=== PATIENT | male | born 1960 | race Caucasian/White ===

== ENCOUNTER → 2018-02-02 | Outpatient (CLI) | payer MEDICARE, OTHER ==
[~2018-02-02] MED LIST: ALBU90OI6 INH; ASPI81EC PO; Amiodarone HCl200 MG PO; DICL75ER PO; DILT120 PO; DOXY100 PO; FISH1000 PO; FURO40 PO; Flovent Disku250 MCG IH; Flovent Disku250 MCG INH; GUAI600T33 PO; HYDACE5325 PO; Ipratr-Albuterol3 ML IH; LISHYD1012 PO; LOVA40 PO; METF500 PO; METO25ER PO; METO50ER PO; MORP30 PO; OXYACE5T PO; OXYC10TA19 PO; PRED10 PO; PREG75 PO; PRENZ PO; Prednisone20 MG PO; Prozac20 MG PO; RANI150 PO; ROSU10TA PO; RXHYD5325 PO; Ventolin/Prove6.7 GM INH; XARELTO20 MG PO
[2018-02-02 14:38] LABS: BASOPHILS ABSOLUTE AUTO 0.04 K/mm3 (0.00-0.23); BASOPHILS PERCENT AUTO 0 % (0-2); EOSINOPHILS ABSOLUTE AUTO 0.16 K/mm3 (0.00-0.68); EOSINOPHILS PERCENT AUTO 2 % (0-6); Hematocrit 46.8 % (37.0-53.0); Hemoglobin 15.1 g/dL (13.5-17.5); IMMATURE GRAN ABSOLUTE AUTO 0.03 K/mm3 (0.00-0.10); IMMATURE GRAN PERCENT AUTO 0 % (0-1); LYMPHOCYTES ABSOLUTE AUTO 2.52 K/mm3 (0.84-5.20); LYMPHOCYTES PERCENT AUTO 23 % (21-46); MONOCYTES ABSOLUTE AUTO 0.72 K/mm3 (0.16-1.47); MONOCYTES PERCENT AUTO 7 % (4-13); Mean Corpuscular HGB Conc 32.3 g/dL (31.5-36.5); Mean Corpuscular Volume 90 fL (80-100); Mean Platelet Volume 11.4 fL (9.1-12.4); NEUTROPHILS ABSOLUTE AUTO 7.51 K/mm3 (1.96-9.15); NEUTROPHILS PERCENT AUTO 68 % (41-73); Platelet Count 284 K/mm3 (150-400); RDW Coefficient Variation 15.1 % (11.7-14.2); Red Blood Cell Count 5.21 M/mm3 (4.30-5.90); White Blood Cell Count 10.98 K/mm3 (4.00-11.30)
[2018-02-02 15:08] LABS: Magnesium, Blood 2.2 mg/dL (1.6-2.4)
[2018-02-02 15:10] LABS: Thyroid Stimulating Hormone 0.697 uIU/mL (0.360-4.800)
== END ==
LOC: LAB SHORT 11:15 → LAB 11:15
PROVIDERS: Nurse Practitioner Adult Health
DX: I48.0 Paroxysmal atrial fibrillation (principal)
CPT/HCPCS: 83735; 84443; 85025

== ENCOUNTER 2019-04-01 12:52 | Emergency (ER) | payer OTHER ==
[~2019-04-01] VITALS: Ht 190.5 cm; Wt 149.7 kg
[~2019-04-01 12:52] MED LIST changes: -FURO40 PO; -Ipratr-Albuterol3 ML IH; -MORP30 PO; -Prozac20 MG PO; -Ventolin/Prove6.7 GM INH; -XARELTO20 MG PO
[2019-04-01 13:45] LABS: BASOPHILS ABSOLUTE AUTO 0.03 K/mm3 (0.00-0.23); BASOPHILS PERCENT AUTO 0 % (0-2); EOSINOPHILS PERCENT AUTO 0 % (0-6); Hematocrit 44.8 % (37.0-53.0); Hemoglobin 14.3 g/dL (13.5-17.5); IMMATURE GRAN ABSOLUTE AUTO 0.06 K/mm3 (0.00-0.10); IMMATURE GRAN PERCENT AUTO 0 % (0-1); LYMPHOCYTES ABSOLUTE AUTO 2.08 K/mm3 (0.84-5.20); LYMPHOCYTES PERCENT AUTO 12 % (21-46); MONOCYTES ABSOLUTE AUTO 1.22 K/mm3 (0.16-1.47); MONOCYTES PERCENT AUTO 7 % (4-13); Mean Corpuscular HGB 27.8 pg (26.0-34.0); Mean Corpuscular HGB Conc 31.9 g/dL (31.5-36.5); Mean Corpuscular Volume 87 fL (80-100); Mean Platelet Volume 11.3 fL (9.1-12.4); NEUTROPHILS ABSOLUTE AUTO 13.85 K/mm3 (1.96-9.15); NEUTROPHILS PERCENT AUTO 80 % (41-73); Platelet Count 317 K/mm3 (150-400); RDW Coefficient Variation 14.6 % (11.7-14.2); RDW Standard Deviation 47.5 fL (35.1-46.3); Red Blood Cell Count 5.14 M/mm3 (4.30-5.90); White Blood Cell Count 17.24 K/mm3 (4.00-11.30)
[2019-04-01 14:07] LABS: Alanine Aminotransfer (ALT/SGP 20 U/L (12-78); Albumin, Blood 3.5 g/dL (3.4-5.0); Albumin/Globulin Ratio 0.8 (0.8-1.8); Alk Phos 134 U/L (50-136); Anion Gap 7 mmol/L (6-16); Aspartate Aminotrans (AST/SGOT 8 U/L (12-37); Bilirubin, Total 0.7 mg/dL (0.1-1.0); Blood Urea Nitrogen 16 mg/dL (8-24); Bun/Creatinine Ratio 16.2 (12.0-20.0); CO2, Blood 25 mmol/L (21-32); Calcium, Blood 9.2 mg/dL (8.5-10.1); Chloride, Blood 107 mmol/L (98-108); Creatinine, Blood 0.99 mg/dL (0.60-1.20); Globulin, Blood 4.5 g/dL (2.2-4.0); Glomerular Filtration Rate >60 (60-); Glucose, Blood 123 mg/dL (70-99); Potassium, Blood 4.1 mmol/L (3.5-5.5); Sodium, Blood 139 mmol/L (136-145); Troponin I <0.015 ng/mL (0.000-0.040)
[2019-04-01] MEDS ORDERED: Prozac20 MG PO (14:15)
[2019-04-01] MEDS ORDERED: Ventolin/Prove6.7 GM INH (14:16)
[2019-04-01] MEDS ORDERED: XARELTO20 MG PO (14:16)
[2019-04-01] MEDS ORDERED: ZESTRIL40 M1 PO (14:17)
[2019-04-01] MEDS ORDERED: Cartia Xt240 MG PO (14:17)
[2019-04-01] MEDS ORDERED: TRELEGY ELLIPT1 EACH INH (14:18)
[2019-04-01] MEDS ORDERED: ATORVASTATIN CA40 MG PO (14:18)
[2019-04-01] MEDS ORDERED: ALBU2.5V5 NEB (14:34)
[2019-04-01] MEDS ORDERED: MORP30 PO (14:34)
[2019-04-01] MEDS ORDERED: Amiodarone HCl200 MG PO (14:35)
[2019-04-01] MEDS ORDERED: FURO20 PO (14:35)
[2019-04-01] MEDS ORDERED: WAL-ZAN 150150 MG PO (14:36)
[2019-04-01] MEDS ORDERED: Zithromax250 MG PO (15:18)
[2019-04-01] MEDS ORDERED: Prednisone20 MG PO (15:18)
== END 2019-04-01 15:39 | disposition home or self-care (01) ==
LOC: ER 12:52
PROVIDERS: Physician Assistant
DX: J44.1 Chronic obstructive pulmonary disease with (acute) exacerbation (principal); I48.91 Unspecified atrial fibrillation; E11.9 Type 2 diabetes mellitus without complications; F17.200 Nicotine dependence, unspecified, uncomplicated; Z88.5 Allergy status to narcotic agent; Z91.041 Radiographic dye allergy status; Z79.899 Other long term (current) drug therapy; Z79.51 Long term (current) use of inhaled steroids
CPT/HCPCS: 71046; 80053; 83690; 84484; 85025; 93005; 93010; 94640; 96374; 96375; 99285-25; J1170; J2405; J2930

== ENCOUNTER → 2020-02-05 | Outpatient (CLI) | payer OTHER ==
[~2020-02-05] MED LIST changes: +ALBU2.5V5 NEB; +ALBU90OI INH; +ATORVASTATIN CA40 MG PO; +Cartia Xt240 MG PO; +FURO20 PO; +MORP30 PO; +PRED20 PO; +Prozac20 MG PO; +TRELEGY ELLIPT1 EACH INH; +Ventolin/Prove6.7 GM INH; +WAL-ZAN 150150 MG PO; +XARELTO20 MG PO; +ZESTRIL40 M1 PO; +Zithromax250 MG PO
[2020-02-05 15:34] LABS: Microalb/Creat Ratio UR, Rand 6.77 mg/g (0.000-30.000); Microalbumin, Random Urine 21.8 mg/L (0.000-20.000)
== END | disposition home or self-care (01) ==
LOC: LAB SHORT 13:56 → LAB 13:56 → LAB FUT 01-30 13:25
PROVIDERS: Family Medicine
DX: E11.9 Type 2 diabetes mellitus without complications (principal)
CPT/HCPCS: 82043; 82570

== ENCOUNTER 2020-05-23 05:31 | Emergency (ER) | payer OTHER ==
[~2020-05-23] VITALS: Ht 188 cm; Wt 158.8 kg
[~2020-05-23 05:31] MED LIST changes: -ALBU2.5V5 NEB; -ATORVASTATIN CA40 MG PO; -Cartia Xt240 MG PO; -MORP30 PO; -TRELEGY ELLIPT1 EACH INH; -Ventolin/Prove6.7 GM INH; -XARELTO20 MG PO; -ZESTRIL40 M1 PO
[2020-05-24] MEDS ORDERED: Norco 5-325 Ta1 EACH PO (13:12)
[2020-05-24] MEDS ORDERED: MORP30 PO (13:12)
[2020-05-24] MEDS ORDERED: XARELTO20 MG PO (13:13)
[2020-05-24] MEDS ORDERED: NEURONTIN300 MG PO (13:14)
[2020-05-24] MEDS ORDERED: ATORVASTATIN CA40 MG PO (13:15)
[2020-05-24] MEDS ORDERED: Amiodarone HCl200 MG PO (13:15)
[2020-05-24] MEDS ORDERED: Ventolin/Prove6.7 GM INH (13:15)
[2020-05-24] MEDS ORDERED: DILTIAZEM 24HR120 M4 PO (13:16)
[2020-05-24] MEDS ORDERED: Prinivil10 MG PO (13:17)
[2020-05-24] MEDS ORDERED: OMEP20ER PO (13:18)
[2020-05-24] MEDS ORDERED: TRELEGY ELLIPT1 EACH INH (13:19)
[2020-05-24] MEDS ORDERED: NITROGLYCERIN0.4 M3 SL (13:20)
[2020-05-24] MEDS ORDERED: ALBU2.5V5 NEB (16:09)
== END 2020-05-23 07:23 | disposition home or self-care (01) ==
LOC: ER 05:31
DX: S76.101A Unspecified injury of right quadriceps muscle, fascia and tendon, initial encounter (principal); I48.91 Unspecified atrial fibrillation; F17.210 Nicotine dependence, cigarettes, uncomplicated; Z91.041 Radiographic dye allergy status; Z88.5 Allergy status to narcotic agent; Z79.52 Long term (current) use of systemic steroids; Y04.0XXA Assault by unarmed brawl or fight, initial encounter
CPT/HCPCS: 29505; 73562-RT; 96372-59; 99283-25; J2270

== ENCOUNTER 2020-05-24 12:50 | Observation (INO) | payer OTHER ==
[~2020-05-24] VITALS: Ht 190.5 cm; Wt 159.0 kg
[2020-05-24] MEDS ORDERED: MORP30 PO (13:12)
[2020-05-24] MEDS ORDERED: Norco 5-325 Ta1 EACH PO (13:12)
[2020-05-24] MEDS ORDERED: XARELTO20 MG PO (13:13)
[2020-05-24] MEDS ORDERED: NEURONTIN300 MG PO (13:14)
[2020-05-24] MEDS ORDERED: Ventolin/Prove6.7 GM INH (13:15)
[2020-05-24] MEDS ORDERED: Amiodarone HCl200 MG PO (13:15)
[2020-05-24] MEDS ORDERED: ATORVASTATIN CA40 MG PO (13:15)
[2020-05-24] MEDS ORDERED: DILTIAZEM 24HR120 M4 PO (13:16)
[2020-05-24] MEDS ORDERED: Prinivil10 MG PO (13:17)
[2020-05-24] MEDS ORDERED: OMEP20ER PO (13:18)
[2020-05-24] MEDS ORDERED: TRELEGY ELLIPT1 EACH INH (13:19)
[2020-05-24] MEDS ORDERED: NITROGLYCERIN0.4 M3 SL (13:20)
[2020-05-24 13:23] LABS: BASOPHILS ABSOLUTE AUTO 0.04 K/mm3 (0.00-0.23); BASOPHILS PERCENT AUTO 1 % (0-2); EOSINOPHILS ABSOLUTE AUTO 0.06 K/mm3 (0.00-0.68); EOSINOPHILS PERCENT AUTO 1 % (0-6); Hematocrit 43.8 % (37.0-53.0); Hemoglobin 13.7 g/dL (13.5-17.5); IMMATURE GRAN ABSOLUTE AUTO 0.02 K/mm3 (0.00-0.10); IMMATURE GRAN PERCENT AUTO 0 % (0-1); LYMPHOCYTES ABSOLUTE AUTO 2.15 K/mm3 (0.84-5.20); LYMPHOCYTES PERCENT AUTO 26 % (21-46); MONOCYTES ABSOLUTE AUTO 0.81 K/mm3 (0.16-1.47); MONOCYTES PERCENT AUTO 10 % (4-13); Mean Corpuscular HGB Conc 31.3 g/dL (31.5-36.5); Mean Corpuscular Volume 86 fL (80-100); Mean Platelet Volume 11.2 fL (9.1-12.4); NEUTROPHILS ABSOLUTE AUTO 5.15 K/mm3 (1.96-9.15); NEUTROPHILS PERCENT AUTO 63 % (41-73); Platelet Count 229 K/mm3 (150-400); RDW Coefficient Variation 15.9 % (11.7-14.2); RDW Standard Deviation 49.4 fL (35.1-46.3); Red Blood Cell Count 5.08 M/mm3 (4.30-5.90); White Blood Cell Count 8.23 K/mm3 (4.00-11.30)
[2020-05-24 13:46] LABS: Alanine Aminotransfer (ALT/SGP 45 U/L (12-78); Albumin, Blood 3.1 g/dL (3.4-5.0); Albumin/Globulin Ratio 0.9 (0.8-1.8); Alk Phos 118 U/L (50-136); Anion Gap 5 mmol/L (6-16); Aspartate Aminotrans (AST/SGOT 26 U/L (12-37); Bilirubin, Total 0.3 mg/dL (0.1-1.0); Blood Urea Nitrogen 20 mg/dL (8-24); Bun/Creatinine Ratio 17.7 (12.0-20.0); CO2, Blood 27 mmol/L (21-32); Calcium, Blood 8.4 mg/dL (8.5-10.1); Chloride, Blood 110 mmol/L (98-108); Creatinine, Blood 1.13 mg/dL (0.60-1.20); Globulin, Blood 3.6 g/dL (2.2-4.0); Glomerular Filtration Rate >60 (60-); Glucose, Blood 113 mg/dL (70-99); Potassium, Blood 4.1 mmol/L (3.5-5.5); Sodium, Blood 142 mmol/L (136-145); Total Protein, Blood 6.7 g/dL (6.4-8.2); Troponin I <0.015 ng/mL (0.000-0.040)
[2020-05-24] MEDS ORDERED: ALBU2.5V5 NEB (16:09)
--- NOTE | 2020-05-25 03:53 | NUR ---
PAIN MEDICATION SPOKE TO PRIMARY RN JARRET AND DISCUSSED PT'S PAIN MEDICATION REGIMEN. PT TAKES 30 MG MORPHINE PO Q 8 HOURS AT HOME. CURRENT ORDER IS SCHEDULED TID WHICH PROVIDES THE PATIENT WITH NO MEDICATION AFTER 2100 AND BEFORE 0900. PER DISCUSSION WITH DR. MAYNARD, PT MAY TAKE HIS CHRONIC PAIN MEDICATION HE TAKES IT AT HOME. UPDATED THE ORDER TO REFLECT Q 8 HOURS PRN SO THAT PT MAY ASK FOR HIS MORPHINE AT THE TIMING HE PREFERS WITHOUT INCREASING THE FREQUENCY. PT IS SATISFIED WITH THIS SOLUTION.
[2020-05-25 04:40] LABS: Anion Gap 8 mmol/L (6-16); Blood Urea Nitrogen 16 mg/dL (8-24); Bun/Creatinine Ratio 14.7 (12.0-20.0); CO2, Blood 26 mmol/L (21-32); Calcium, Blood 8.2 mg/dL (8.5-10.1); Chloride, Blood 109 mmol/L (98-108); Creatinine, Blood 1.09 mg/dL (0.60-1.20); Glomerular Filtration Rate >60 (60-); Glucose, Blood 105 mg/dL (70-99); Potassium, Blood 3.8 mmol/L (3.5-5.5); Sodium, Blood 143 mmol/L (136-145); Thyroid Stimulating Hormone 0.631 uIU/mL (0.360-4.800)
--- NOTE | 2020-05-25 04:42 | NUR ---
REGISTERED MAIL CLERK SUMMARY PT ARRIVED TO THE FLOOR FROM THE ED AND HAD A HR OF AFLUTTER 120-130'S, CARDIZEM GTT AT 10MG/HR. BP'S HAVE BEEN AROUND 100 SYSTOLIC SO CARDIZEM WAS NOT TITRATED. HR THIS AM IS 80-120 BUT AVERAGING AROUND 100 BPM. BP IS STABLE. PT HAS DENIED ANY C/P THIS SHIFT. THE PT IS ABLE TO AMBULATE TO BATHROOM BUT BECOMES VERY DYSPNEIC AND IT TAKES HIM AWHILE TO RECOVER, O2 SATS HAVE REMAINED >92% EVEN WHEN SOB. PT HAS REMAINED AWAKE FOR MOST OF THE SHIFT AND C/O BACK AND R KNEE PAIN, PT GIVEN PAIN MEDS PER EMAR AND AN ICE PACK FOR HIS KNEE. VSS, WCTM.
--- NOTE | 2020-05-25 10:52 | NUR ---
Echocardiogram using 0.60ml of Definity contrast performed by Milly Messer under my supervision.
--- NOTE | 2020-05-25 12:08 | NUR ---
Patient provided student nurse permission to provide care today 05/25/20.
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
[2020-05-25] MEDS ORDERED: DOCU100 PO (12:57)
[2020-05-25] MEDS ORDERED: FURO20 PO (12:58)
== END 2020-05-25 13:47 | disposition home or self-care (01) ==
LOC: ER 12:50 → ERHOLD 12:51 → PCU 19:44
PROVIDERS: Emergency Medicine; Family Medicine; ADMIT Hospitalist
DX: I48.92 Unspecified atrial flutter (principal); G89.4 Chronic pain syndrome; J44.9 Chronic obstructive pulmonary disease, unspecified; I10 Essential (primary) hypertension; E11.9 Type 2 diabetes mellitus without complications; Z23 Encounter for immunization; I48.0 Paroxysmal atrial fibrillation; F17.210 Nicotine dependence, cigarettes, uncomplicated; Z79.01 Long term (current) use of anticoagulants
CPT/HCPCS: 36415; 71045; 80048; 80053; 82947; 84443; 84484; 85025; 93005; 93010; 94640; 94760; 96361; 96374; 96375; 96376; 99285-25; A9270; C8929; G0008; G0378; J7030; Q2038; Q9957

== ENCOUNTER 2020-06-05 17:13 | Observation (INO) | payer OTHER ==
[~2020-06-05] VITALS: Ht 190.5 cm; Wt 172.4 kg
[~2020-06-05 17:13] MED LIST changes: +ALBU2.5V5 NEB; +ATORVASTATIN CA40 MG PO; +DILTIAZEM 24HR120 M4 PO; +DOCU100 PO; +MORP30 PO; +NEURONTIN300 MG PO; +NITROGLYCERIN0.4 M3 SL; +Norco 5-325 Ta1 EACH PO; +OMEP20ER PO; +Prinivil10 MG PO; +TRELEGY ELLIPT1 EACH INH; +Ventolin/Prove6.7 GM INH; +XARELTO20 MG PO
[2020-06-05 18:38] LABS: BASOPHILS ABSOLUTE AUTO 0.05 K/mm3 (0.00-0.23); BASOPHILS PERCENT AUTO 1 % (0-2); EOSINOPHILS ABSOLUTE AUTO 0.07 K/mm3 (0.00-0.68); EOSINOPHILS PERCENT AUTO 1 % (0-6); Hematocrit 45.8 % (37.0-53.0); Hemoglobin 14.4 g/dL (13.5-17.5); IMMATURE GRAN ABSOLUTE AUTO 0.04 K/mm3 (0.00-0.10); IMMATURE GRAN PERCENT AUTO 0 % (0-1); LYMPHOCYTES ABSOLUTE AUTO 2.43 K/mm3 (0.84-5.20); LYMPHOCYTES PERCENT AUTO 23 % (21-46); MONOCYTES ABSOLUTE AUTO 0.91 K/mm3 (0.16-1.47); MONOCYTES PERCENT AUTO 8 % (4-13); Mean Corpuscular HGB 26.8 pg (26.0-34.0); Mean Corpuscular HGB Conc 31.4 g/dL (31.5-36.5); Mean Corpuscular Volume 85 fL (80-100); Mean Platelet Volume 11.8 fL (9.1-12.4); NEUTROPHILS ABSOLUTE AUTO 7.31 K/mm3 (1.96-9.15); NEUTROPHILS PERCENT AUTO 68 % (41-73); Platelet Count 323 K/mm3 (150-400); RDW Standard Deviation 49.6 fL (35.1-46.3); Red Blood Cell Count 5.37 M/mm3 (4.30-5.90); White Blood Cell Count 10.81 K/mm3 (4.00-11.30)
[2020-06-05 18:51] LABS: Anion Gap 4 mmol/L (6-16); Blood Urea Nitrogen 15 mg/dL (8-24); Bun/Creatinine Ratio 16.1 (12.0-20.0); CO2, Blood 27 mmol/L (21-32); Calcium, Blood 8.3 mg/dL (8.5-10.1); Chloride, Blood 110 mmol/L (98-108); Creatinine, Blood 0.93 mg/dL (0.60-1.20); Glomerular Filtration Rate >60 (60-); Glucose, Blood 125 mg/dL (70-99); Potassium, Blood 5.1 mmol/L (3.5-5.5); Sodium, Blood 141 mmol/L (136-145); Troponin I <0.015 ng/mL (0.000-0.040)
[2020-06-06 03:59] LABS: Anion Gap 2 mmol/L (6-16); Blood Urea Nitrogen 15 mg/dL (8-24); Bun/Creatinine Ratio 13.6 (12.0-20.0); CO2, Blood 32 mmol/L (21-32); Chloride, Blood 109 mmol/L (98-108); Glomerular Filtration Rate >60 (60-); Glucose, Blood 108 mg/dL (70-99); Sodium, Blood 143 mmol/L (136-145)
--- NOTE | 2020-06-06 04:53 | NUR ---
SHIFT SUMMARY RECIEVED REPORT FROM JACOBO PHILLIPS. PATIENT TO ROOM VIA STRETCHER @2200, TRANSFERED INDEPENDENTLY TO THE BED WITH HIS CANE. PATIENT IS ALERT AND ORIENTED X4. INDEPENDENT IN THE ROOM. PATIENT A.FIB 90s-110 WHEN HE ARRIVED TO THE UNIT @2200, PATIENT CONVERTED TO NORMAL SINUS RHYTHM AT @2237. CARDIZEM gtt STOPPED @0022 PATIENT REMAINED NSR @60s-70s. 02 SATS >90% ON RA, PATIENT USES 2L 02 AT NIGHT AT BASELINE. VSS, NO ACUTE CHANGES. CALL LIGHT IN REACH.
--- NOTE | 2020-06-06 09:45 | NUR ---
PT REFUSED PT REFUSED AM DOSE OF LASIX. EDUCATED PT ON IMPORTANCE OF LASIX WITH CURRENT HEALTH CONDITIONS. PT STATES, "WILL TAKE IT AT HOME."
[2020-06-06] MEDS ORDERED: DILT180 PO (11:56)
--- NOTE | 2020-06-06 12:55 | NUR ---
PT DISHCARGE DISCHARGE ORDERS RECIEVED FROM PHYSICIAN. MEDICATION CHANGE FAXED INTO PHARMACY. MEDICATION CHANGES PROVIDED TO PT. PHYSICIAN INSTRUCTION PROVIDED TO PT. PT VERBALLY RED-BACK INSTRUCTIONS. PT SIGNED DISCHARGE PAPERWORK. VS TAKEN. STABLE. IV REMOVED. TELEMETRY REMOVED. PT'S SON WILL PICK PT UP OUTSIDE OF HOSPITAL. REGULATORY COORDINATOR WILL ASSIST PT OUT TO SON'S CARE IN WHEELCHAIR.
== END 2020-06-06 13:11 | disposition home or self-care (01) ==
LOC: ER 17:13 → PCU 20:51
PROVIDERS: Student in an Organized Health Care Education/Training Program; ADMIT Hospitalist
DX: I48.91 Unspecified atrial fibrillation (principal); J44.9 Chronic obstructive pulmonary disease, unspecified; I10 Essential (primary) hypertension; G89.29 Other chronic pain; R60.0 Localized edema; E11.9 Type 2 diabetes mellitus without complications; I69.354 Hemiplegia and hemiparesis following cerebral infarction affecting left non-dominant side; Z88.5 Allergy status to narcotic agent; Z91.041 Radiographic dye allergy status; Z79.891 Long term (current) use of opiate analgesic; F17.200 Nicotine dependence, unspecified, uncomplicated
CPT/HCPCS: 36415; 80048; 84484; 85025; 92960; 93005; 93010; 94640; 94760; 96361-59; 96374-59; 99152; 99285-25; A9270; G0378; J2704; J7030

== ENCOUNTER 2020-06-16 15:33 | Emergency (ER) | payer OTHER ==
[~2020-06-16] VITALS: Ht 190.5 cm; Wt 163.3 kg
[~2020-06-16 15:33] MED LIST changes: +DILT180 PO
[2020-06-16 16:07] LABS: BASOPHILS ABSOLUTE AUTO 0.03 K/mm3 (0.00-0.23); BASOPHILS PERCENT AUTO 0 % (0-2); EOSINOPHILS ABSOLUTE AUTO 0.09 K/mm3 (0.00-0.68); EOSINOPHILS PERCENT AUTO 1 % (0-6); Hemoglobin 14.8 g/dL (13.5-17.5); IMMATURE GRAN ABSOLUTE AUTO 0.03 K/mm3 (0.00-0.10); IMMATURE GRAN PERCENT AUTO 0 % (0-1); LYMPHOCYTES ABSOLUTE AUTO 3.06 K/mm3 (0.84-5.20); LYMPHOCYTES PERCENT AUTO 31 % (21-46); MONOCYTES ABSOLUTE AUTO 0.86 K/mm3 (0.16-1.47); MONOCYTES PERCENT AUTO 9 % (4-13); Mean Corpuscular HGB 26.7 pg (26.0-34.0); Mean Corpuscular HGB Conc 31.5 g/dL (31.5-36.5); Mean Corpuscular Volume 85 fL (80-100); Mean Platelet Volume 11.8 fL (9.1-12.4); NEUTROPHILS ABSOLUTE AUTO 5.75 K/mm3 (1.96-9.15); NEUTROPHILS PERCENT AUTO 59 % (41-73); Platelet Count 269 K/mm3 (150-400); RDW Coefficient Variation 15.9 % (11.7-14.2); RDW Standard Deviation 49.3 fL (35.1-46.3); Red Blood Cell Count 5.54 M/mm3 (4.30-5.90); White Blood Cell Count 9.82 K/mm3 (4.00-11.30)
[2020-06-16 16:35] LABS: Alanine Aminotransfer (ALT/SGP 52 U/L (12-78); Albumin, Blood 3.2 g/dL (3.4-5.0); Albumin/Globulin Ratio 0.8 (0.8-1.8); Alk Phos 150 U/L (50-136); Anion Gap 6 mmol/L (6-16); Aspartate Aminotrans (AST/SGOT 26 U/L (12-37); Bilirubin, Total 0.5 mg/dL (0.1-1.0); Blood Urea Nitrogen 19 mg/dL (8-24); Bun/Creatinine Ratio 17.3 (12.0-20.0); CO2, Blood 29 mmol/L (21-32); Calcium, Blood 8.7 mg/dL (8.5-10.1); Chloride, Blood 107 mmol/L (98-108); Globulin, Blood 3.9 g/dL (2.2-4.0); Glomerular Filtration Rate >60 (60-); Glucose, Blood 129 mg/dL (70-99); Sodium, Blood 142 mmol/L (136-145); Total Protein, Blood 7.1 g/dL (6.4-8.2); Troponin I <0.015 ng/mL (0.000-0.040)
== END 2020-06-16 18:31 | disposition home or self-care (01) ==
LOC: ER 15:33
PROVIDERS: Physician Assistant
DX: I48.91 Unspecified atrial fibrillation (principal); J44.1 Chronic obstructive pulmonary disease with (acute) exacerbation; I10 Essential (primary) hypertension; K21.9 Gastro-esophageal reflux disease without esophagitis; F17.210 Nicotine dependence, cigarettes, uncomplicated; Z91.041 Radiographic dye allergy status; Z88.5 Allergy status to narcotic agent; Z79.01 Long term (current) use of anticoagulants; Z86.73 Personal history of transient ischemic attack (TIA), and cerebral infarction without residual deficits
CPT/HCPCS: 71045; 80053; 83880; 84484; 85025; 93005; 93010; 96374; 99285-25; J2930

== ENCOUNTER 2020-07-16 07:23 | Inpatient (IN) | payer OTHER ==
[~2020-07-16] VITALS: Ht 190.5 cm; Wt 163.3 kg
[2020-07-16 08:19] LABS: BASOPHILS ABSOLUTE AUTO 0.03 K/mm3 (0.00-0.23); BASOPHILS PERCENT AUTO 0 % (0-2); EOSINOPHILS ABSOLUTE AUTO 0.12 K/mm3 (0.00-0.68); EOSINOPHILS PERCENT AUTO 2 % (0-6); Hematocrit 47.1 % (37.0-53.0); Hemoglobin 14.7 g/dL (13.5-17.5); IMMATURE GRAN ABSOLUTE AUTO 0.02 K/mm3 (0.00-0.10); IMMATURE GRAN PERCENT AUTO 0 % (0-1); LYMPHOCYTES ABSOLUTE AUTO 2.17 K/mm3 (0.84-5.20); LYMPHOCYTES PERCENT AUTO 26 % (21-46); MONOCYTES ABSOLUTE AUTO 0.65 K/mm3 (0.16-1.47); MONOCYTES PERCENT AUTO 8 % (4-13); Mean Corpuscular HGB 26.2 pg (26.0-34.0); Mean Corpuscular HGB Conc 31.2 g/dL (31.5-36.5); Mean Corpuscular Volume 84 fL (80-100); Mean Platelet Volume 11.1 fL (9.1-12.4); NEUTROPHILS ABSOLUTE AUTO 5.22 K/mm3 (1.96-9.15); NEUTROPHILS PERCENT AUTO 64 % (41-73); Platelet Count 310 K/mm3 (150-400); RDW Coefficient Variation 16.2 % (11.7-14.2); RDW Standard Deviation 49.5 fL (35.1-46.3); Red Blood Cell Count 5.62 M/mm3 (4.30-5.90); White Blood Cell Count 8.21 K/mm3 (4.00-11.30)
[2020-07-16 09:17] LABS: Alanine Aminotransfer (ALT/SGP 48 U/L (12-78); Albumin, Blood 3.1 g/dL (3.4-5.0); Albumin/Globulin Ratio 0.8 (0.8-1.8); Alk Phos 137 U/L (50-136); Anion Gap 4 mmol/L (6-16); Aspartate Aminotrans (AST/SGOT 22 U/L (12-37); Bilirubin, Total 0.4 mg/dL (0.1-1.0); Blood Urea Nitrogen 13 mg/dL (8-24); Bun/Creatinine Ratio 12.1 (12.0-20.0); CO2, Blood 31 mmol/L (21-32); Calcium, Blood 8.6 mg/dL (8.5-10.1); Chloride, Blood 105 mmol/L (98-108); Creatinine, Blood 1.07 mg/dL (0.60-1.20); Glomerular Filtration Rate >60 (60-); Glucose, Blood 124 mg/dL (70-99); Potassium, Blood 3.8 mmol/L (3.5-5.5); Sodium, Blood 140 mmol/L (136-145); Total Protein, Blood 7.1 g/dL (6.4-8.2); Troponin I <0.015 ng/mL (0.000-0.040)
--- NOTE | 2020-07-16 12:25 | NUR ---
ARRIVED TO U 11
--- NOTE | 2020-07-16 16:52 | NUR ---
Heart rate 139-141, pt sitting on side of bed, states that he feels nauseated and having some difficulty breathing and concentrating. Vital signs taken at this time.
--- NOTE | 2020-07-16 17:00 | NUR ---
Call to Dr. Swift regarding pt's condition; he will order amiodarone gtt.
--- NOTE | 2020-07-16 17:54 | NUR ---
SHIFT NOTE PT ARRIVED FROM ER THIS AFTERNOON WITH C/O AFIB. PT NOTED TO HAVE A-FLUTTER ON ARRIVAL. ON ARRIVAL PT DENIES CP OR SOB, T/O THE SHIFT BEGAN TO FEEL LIGHT HEADED AND WITH SOME SOB. THERE WAS NO CHANGE IN RATE OR RHYTHM WITH 15MG GTT CARDIZEM OR WITH THE ADDITION OF PO AMIODERONE. SR SYBIL WAS CONSULTED, CARDIZEM GTT WAS D/C AND REPLACED WITH AMIODERONE GTT. PT NOW REPORTS THAT HE IS STARTING TO FEEL BETTER, BP IS COMING DOWN AT THIS TIME. PT SITTING UP AT BEDSIDE, TALKING IN FULL SENTENCES
--- NOTE | 2020-07-16 21:37 | NUR ---
ASSUMED CARE OF PATIENT AT APPROXIMATELY 1910 FROM DENIS Crain RN. PATIENT ALERT AND ORIENTED X4; SBA TO INDEPDENENT IN ROOM; USES CANE AT BASELINE. PATIENT REPORTS CHRONIC PAIN IN BACK; SCHEDULED PAIN MEDICATION. PATIENT DENIES DIZZINESS, NUASEA OR LIGHTHEADEDNESS. AFLUTTER 130'S ON TELE; AMIODARONE GTT; OXYGEN SATURATION ABOVE 90% ON ROOM AIR; USES 2LPM VIA NC AT NIGHT. PATIENT CURRENTLY RESTING IN BED; CALL LIGHT IN REACH; BED IN LOWEST POSISTION
[2020-07-17 03:59] LABS: BASOPHILS ABSOLUTE AUTO 0.03 K/mm3 (0.00-0.23); BASOPHILS PERCENT AUTO 0 % (0-2); EOSINOPHILS ABSOLUTE AUTO 0.14 K/mm3 (0.00-0.68); EOSINOPHILS PERCENT AUTO 2 % (0-6); Hematocrit 44.3 % (37.0-53.0); Hemoglobin 13.9 g/dL (13.5-17.5); IMMATURE GRAN ABSOLUTE AUTO 0.01 K/mm3 (0.00-0.10); IMMATURE GRAN PERCENT AUTO 0 % (0-1); LYMPHOCYTES ABSOLUTE AUTO 2.29 K/mm3 (0.84-5.20); LYMPHOCYTES PERCENT AUTO 28 % (21-46); MONOCYTES ABSOLUTE AUTO 0.57 K/mm3 (0.16-1.47); MONOCYTES PERCENT AUTO 7 % (4-13); Mean Corpuscular HGB 26.6 pg (26.0-34.0); Mean Corpuscular HGB Conc 31.4 g/dL (31.5-36.5); Mean Corpuscular Volume 85 fL (80-100); Mean Platelet Volume 11.5 fL (9.1-12.4); NEUTROPHILS ABSOLUTE AUTO 5.24 K/mm3 (1.96-9.15); NEUTROPHILS PERCENT AUTO 63 % (41-73); Platelet Count 297 K/mm3 (150-400); RDW Standard Deviation 49.9 fL (35.1-46.3); Red Blood Cell Count 5.23 M/mm3 (4.30-5.90); White Blood Cell Count 8.28 K/mm3 (4.00-11.30)
[2020-07-17 05:35] LABS: Alanine Aminotransfer (ALT/SGP 41 U/L (12-78); Albumin, Blood 2.7 g/dL (3.4-5.0); Albumin/Globulin Ratio 0.7 (0.8-1.8); Alk Phos 117 U/L (50-136); Anion Gap 4 mmol/L (6-16); Aspartate Aminotrans (AST/SGOT 15 U/L (12-37); Bilirubin, Total 0.4 mg/dL (0.1-1.0); Blood Urea Nitrogen 14 mg/dL (8-24); Bun/Creatinine Ratio 11.9 (12.0-20.0); CO2, Blood 34 mmol/L (21-32); Calcium, Blood 8.4 mg/dL (8.5-10.1); Chloride, Blood 105 mmol/L (98-108); Creatinine, Blood 1.18 mg/dL (0.60-1.20); Globulin, Blood 3.8 g/dL (2.2-4.0); Glomerular Filtration Rate >60 (60-); Glucose, Blood 147 mg/dL (70-99); Potassium, Blood 3.4 mmol/L (3.5-5.5); Sodium, Blood 143 mmol/L (136-145); Total Protein, Blood 6.5 g/dL (6.4-8.2)
--- NOTE | 2020-07-17 06:23 | NUR ---
PATIENT HAD GERD LAST NIGHT; RECLINER GIVEN. VSS. NO ACUTE CHANGES
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
[2020-07-18 04:31] LABS: Anion Gap 5 mmol/L (6-16); Blood Urea Nitrogen 17 mg/dL (8-24); Bun/Creatinine Ratio 14.7 (12.0-20.0); CO2, Blood 31 mmol/L (21-32); Calcium, Blood 8.4 mg/dL (8.5-10.1); Chloride, Blood 106 mmol/L (98-108); Creatinine, Blood 1.16 mg/dL (0.60-1.20); Glomerular Filtration Rate >60 (60-); Glucose, Blood 118 mg/dL (70-99); Potassium, Blood 3.8 mmol/L (3.5-5.5); Sodium, Blood 142 mmol/L (136-145)
--- NOTE | 2020-07-18 05:44 | NUR ---
SHIFT SUMMARY PT A&O X4; PLEASANT & COMPLIANT W/ CARE; VSS; HR REMAINS 100-135; PT EXPRESSES DISAPPOINTMENT; O2 SATS >93 ON RA; 2L NC IN PLACE WHEN SLEEPING; PT INDEPENDENT IN ROOM W/ PERSONAL CANE; CALLS APPROPRIATELY; NPO AT MIDNIGHT IN PREPARATION FOR CARDIOVERSION; L FOREARM REDDENED FROM INFILTRATED IV FROM DAY, ICE PACK REFILLED AND PROVIDED FOR COMFORT; SCHEDULED MORPHINE FOR CHRONIC BACK PAIN; CALL LIGHT IN REACH; BED IN LOWEST POSITION; WILL CONTINUE TO MONITOR UNITL HAND OFF TO DAY SHIFT RN.
--- NOTE | 2020-07-18 10:44 | NUR ---
1023 PT CARDVIOVERTED WITH 200J ELECTRICITY TO NORMAL SINUS RHYTHM AT 72 CONFIRMED BY YOVANY STRIPPER PRELIMINARY
--- NOTE | 2020-07-18 13:28 | NUR ---
PT STS THAT HE IS LEAVING REGARDLESS IF HE IS DISCHARGED OR NOT, STS HE IS SADA ING TO LEAVE AMA. DR CANELA IS UPDATED THAT PT DEMANDS TO LEAVE OR HE IS LEAVEING AMA. NEW ORDERS OBTAINED FROM DR CANELA TO GIVE ORAL CARDIZEM 180MG PRIOR TO DISCHARGE. PT IS ON THE PHONE WITH SON STS AGAIN HIS PLAN TO LAEVE AMA. DR CANELA IS WORKING ON D/C PAPERS NOW PT REFUSES TO REMAIN ADMITTED
== END 2020-07-18 15:25 | disposition home or self-care (01) | DRG 308 ==
LOC: ER 07:23 → ERHOLD 07:24 → PCU 12:20
PROVIDERS: Emergency Medicine; Family Medicine; Nurse Practitioner Acute Care; ADMIT Hospitalist
PROC: 5A2204Z Restoration of Cardiac Rhythm, Single (ICD-10-PCS; principal; 2020-07-18)
DX: I48.92 Unspecified atrial flutter (principal); I50.33 Acute on chronic diastolic (congestive) heart failure; Z68.42 Body mass index [BMI] 45.0-49.9, adult; I48.0 Paroxysmal atrial fibrillation; J44.9 Chronic obstructive pulmonary disease, unspecified; E66.01 Morbid (severe) obesity due to excess calories; Z79.01 Long term (current) use of anticoagulants; E78.5 Hyperlipidemia, unspecified; K21.9 Gastro-esophageal reflux disease without esophagitis; G89.4 Chronic pain syndrome; I11.0 Hypertensive heart disease with heart failure; F17.210 Nicotine dependence, cigarettes, uncomplicated; E11.9 Type 2 diabetes mellitus without complications; Z86.73 Personal history of transient ischemic attack (TIA), and cerebral infarction without residual deficits
CPT/HCPCS: 36415; 71045; 80048; 80053; 83735; 83880; 84484; 85025; 93005; 93010; 94640; 94644; 94664; 94760; 96365; 96366; 96375; 96376; 99285-25; A9270; A9270-GY; G0378; J0282; J1940; J2250; J2310; J3010; J7040; J7060

== ENCOUNTER → 2020-10-15 | Outpatient (CLI) | payer OTHER ==
[2020-10-15 17:16] LABS: Anion Gap 2 mmol/L (6-16); Blood Urea Nitrogen 13 mg/dL (8-24); Bun/Creatinine Ratio 13.4 (12.0-20.0); CO2, Blood 30 mmol/L (21-32); Calcium, Blood 8.6 mg/dL (8.5-10.1); Chloride, Blood 107 mmol/L (98-108); Creatinine, Blood 0.97 mg/dL (0.60-1.20); Glomerular Filtration Rate >60 (60-); Glucose, Blood 107 mg/dL (70-99); Potassium, Blood 4.3 mmol/L (3.5-5.5); Sodium, Blood 139 mmol/L (136-145)
== END | disposition home or self-care (01) ==
LOC: LAB SHORT 13:21
PROVIDERS: Family Medicine
DX: I50.810 Right heart failure, unspecified (principal)
CPT/HCPCS: 80048

== ENCOUNTER 2022-04-16 10:54 | Inpatient (IN) | payer OTHER ==
[~2022-04-16] VITALS: Ht 190.5 cm; Wt 175.4 kg
[2022-04-16 11:32] LABS: BASOPHILS ABSOLUTE AUTO 0.03 K/mm3 (0.00-0.23); BASOPHILS PERCENT AUTO 0 % (0-2); EOSINOPHILS ABSOLUTE AUTO 0.03 K/mm3 (0.00-0.68); EOSINOPHILS PERCENT AUTO 0 % (0-6); Hemoglobin 14.7 g/dL (13.5-17.5); IMMATURE GRAN ABSOLUTE AUTO 0.08 K/mm3 (0.00-0.10); IMMATURE GRAN PERCENT AUTO 0 % (0-1); LYMPHOCYTES ABSOLUTE AUTO 1.74 K/mm3 (0.84-5.20); LYMPHOCYTES PERCENT AUTO 10 % (21-46); MONOCYTES ABSOLUTE AUTO 1.41 K/mm3 (0.16-1.47); MONOCYTES PERCENT AUTO 8 % (4-13); Mean Corpuscular HGB 27.2 pg (26.0-34.0); Mean Corpuscular Volume 85 fL (80-100); Mean Platelet Volume 11.2 fL (9.1-12.4); NEUTROPHILS ABSOLUTE AUTO 14.99 K/mm3 (1.96-9.15); NEUTROPHILS PERCENT AUTO 82 % (41-73); Platelet Count 273 K/mm3 (150-400); RDW Coefficient Variation 17.3 % (11.7-14.2); RDW Standard Deviation 52.6 fL (35.1-46.3); Red Blood Cell Count 5.41 M/mm3 (4.30-5.90); White Blood Cell Count 18.28 K/mm3 (4.00-11.30)
[2022-04-16 11:51] LABS: Albumin, Blood 3.1 g/dL (3.4-5.0); Albumin/Globulin Ratio 0.8 (0.8-1.8); Bilirubin, Total 0.6 mg/dL (0.1-1.0); Bun/Creatinine Ratio 22.1 (12.0-20.0); Calcium, Blood 8.8 mg/dL (8.5-10.1); Creatinine, Blood 0.95 mg/dL (0.60-1.20); Globulin, Blood 3.9 g/dL (2.2-4.0); Potassium, Blood 4.1 mmol/L (3.5-5.5)
[2022-04-16 12:06] LABS: Influenza A, PCR NEGATIVE (NEGATIVE); Influenza B, PCR NEGATIVE (NEGATIVE); Resp Syncytial Virus, PCR NEGATIVE (NEGATIVE); SARS-Cov-2 (COVID-19) PCR, MMC NEGATIVE (NEGATIVE)
--- NOTE | 2022-04-16 18:31 | NUR ---
New ER admit. Admitted for pneumonia. Patient AOx4, patient is weak when ambulating. SOB on exertion. Currently on 6lpm of oxygen. Med list reviewed with MD, and home meds ordered. Patient reports severe chronic pain, pain meds added to EMAR. 2nd RN skin check done, pannus red/yeast like odor, and coccyx red-but blanchable. +2 pitting edema noted in BLE. Vitals stable. Plan is to administer IV ABX, monitor saturations. Will continue plan of care, and give report to oncoming nurse.
--- NOTE | 2022-04-16 19:35 | NUR ---
RESTING QUIETLY. NO NOTED S/S ACUTE DISTRESS. CALL LIGHT IN REACH.
--- NOTE | 2022-04-17 03:14 | NUR ---
MEAT CURER SUMMARY VSS. VOICED FEELING TOO WARM AND SWEATY AT HS. GOWN CHANGED. UP TO BR. DISCUSSED CODE STATUS WITH NURSE, WANTED DNR - MD NOTIFIED AND ORDERS OBTAINED. O2 AT 6L/MIN. REVIEWED BY RT AND ORDERS FOR TITRATION OBTAINED. HAS BEEN RESTING QUIETLY WITH FEW INTERRUPTIONS SINCE. LUNG SOUNDS DIMINISHED PER AUSCULTATION. CALL LIGHT IN REACH. WILL CONTINUE TO MONITOR
[2022-04-17 05:11] LABS: Hematocrit 43.9 % (37.0-53.0); Hemoglobin 13.6 g/dL (13.5-17.5); Mean Corpuscular HGB 27.2 pg (26.0-34.0); Mean Corpuscular Volume 88 fL (80-100); Mean Platelet Volume 11.7 fL (9.1-12.4); Platelet Count 229 K/mm3 (150-400); RDW Coefficient Variation 17.1 % (11.7-14.2); RDW Standard Deviation 54.7 fL (35.1-46.3)
[2022-04-17 06:02] LABS: Bun/Creatinine Ratio 16.6 (12.0-20.0); Calcium, Blood 8.6 mg/dL (8.5-10.1); Creatinine, Blood 0.97 mg/dL (0.60-1.20); Potassium, Blood 4.8 mmol/L (3.5-5.5)
--- NOTE | 2022-04-17 12:10 | NUR ---
Initial palliative care consult: Doroteo is a 61 year old gentleman with a history of CHF, a-fib, chronic pain with chronic narcotic use, COPD, GERD, diet controlled DM, HTN and a history of a CVA with some left sided weakness. He was admitted on 04/16/22 with RLL pneumonia. Doroteo is awake, sitting in bed with the HOB elevated. He states he lives with his son, Vasu. He has a dtr that lives in [place]. Discussed the POLST form. He states that he has one at home however he has no changed his mind and wants to be a DNR so he is willing to update his POLST to match his current wishes. Discussed POLST and answered questions. Pt signed the POLST and POLST form placed on pt's chart. Spoke with Dr. Barroso who states he will sign pt's POLST form. Spoke with Merle, pt's nurse today, who states she will contact PC RN once MD signs POLST for processing. Pt agreeable to have POLST set to [place] POLST [place]. Doroteo states his son is his alterative healthcare decision maker and he also states that Vasu knows what his wishes re: medical treatments are. Doroteo plans to take the POLST form home to replace his old one. Doroteo reports that quality of life is important for him. He has no further questions at this time. Doroteo does get SOB with speaking at times. He is able to speak in complete sentences.
--- NOTE | 2022-04-17 17:40 | NUR ---
SHIFT SUMMARY- PT IS ALERT AND ORIENTED X4. PT REPORTED DIABETIES ARE CONTROLLED BY MEALS. BLOOD GLUCOSE CHECKS ORDERED Q SHIFT. PT HAD INCREASE WOB THROUGHOUT SHIFT. AUDIBLE WHEEZING HEARD AT PT BEDSIDE. MD NOTIFIED. SEE ORDERS. PT AMBULATES TO THE BATHROOM WITHOUT ASSISTANCE. BED IS IN THE LOWEST POSITION AND CALL LIGHT IS WITHIN REACH.
--- NOTE | 2022-04-18 04:32 | NUR ---
SHIFT SUMMARY NO OVERNIGHT EVENTS. REMAINS ON 3LO2 NC, BASELINE 2LO2. REPORTING HSIEH AND AT REST. SOB BETTER AFTER BREATHING TX. NONPRODUCTIVE COUGH. PT UP INDEPENEDENTLY IN ROOM. PER PT BLE SWELLING VERY MUCH IMPROVED. RLE RED AND INTACT. PT RECIEVING IV ABX/DIURETICS. PT ORIENTED X4, ABLE TO MAKE NEEDS KNONW. CALL LIGHT IN REACH.
[2022-04-18 05:14] LABS: Hematocrit 42.7 % (37.0-53.0); Hemoglobin 13.2 g/dL (13.5-17.5); Mean Corpuscular HGB 26.9 pg (26.0-34.0); Mean Corpuscular HGB Conc 30.9 g/dL (31.5-36.5); Mean Corpuscular Volume 87 fL (80-100); Mean Platelet Volume 10.7 fL (9.1-12.4); Platelet Count 235 K/mm3 (150-400); RDW Standard Deviation 54.1 fL (35.1-46.3); Red Blood Cell Count 4.91 M/mm3 (4.30-5.90); White Blood Cell Count 15.46 K/mm3 (4.00-11.30)
[2022-04-18 07:02] LABS: Calcium, Blood 8.4 mg/dL (8.5-10.1); Potassium, Blood 4.4 mmol/L (3.5-5.5); Thyroid Stimulating Hormone 0.094 uIU/mL (0.360-4.800)
[2022-04-18 08:23] LABS: Free Thyroxine 1.2 ng/dL (0.70-1.60)
[2022-04-18 08:25] LABS: Triiodothyronine, Free 1.91 pg/mL (2.18-3.98)
[2022-04-18] MEDS ORDERED: GUAI600T33 PO (13:34)
[2022-04-18] MEDS ORDERED: AMOCLA875 PO (13:34)
--- NOTE | 2022-04-18 14:13 | NUR ---
PT DISCHARGED 1410 HOME WITH DC INSTRUCTIONS. WHEELCHAIR OUT TO PRIVATE CAR. MEDICATED WITH MS CONTIN AND NERUONTIN BEFORE DC[facility] BELONGINGS SENT HOME
== END 2022-04-18 14:10 | disposition home or self-care (01) | DRG 193 ==
LOC: ER 10:54 → MEDS 15:15
PROVIDERS: Emergency Medicine; Family Medicine; Physician Assistant; ADMIT Internal Medicine
DX: J18.9 Pneumonia, unspecified organism (principal); I50.33 Acute on chronic diastolic (congestive) heart failure; J96.21 Acute and chronic respiratory failure with hypoxia; J44.0 Chronic obstructive pulmonary disease with (acute) lower respiratory infection; L03.115 Cellulitis of right lower limb; F11.20 Opioid dependence, uncomplicated; I48.0 Paroxysmal atrial fibrillation; E11.9 Type 2 diabetes mellitus without complications; I11.0 Hypertensive heart disease with heart failure; K21.9 Gastro-esophageal reflux disease without esophagitis; Z66 Do not resuscitate; G89.4 Chronic pain syndrome; M54.9 Dorsalgia, unspecified; E78.5 Hyperlipidemia, unspecified; F17.210 Nicotine dependence, cigarettes, uncomplicated; Z20.822 Contact with and (suspected) exposure to COVID-19; Z96.652 Presence of left artificial knee joint; Z86.73 Personal history of transient ischemic attack (TIA), and cerebral infarction without residual deficits; Z98.890 Other specified postprocedural states; Z90.49 Acquired absence of other specified parts of digestive tract; Z88.5 Allergy status to narcotic agent; Z91.041 Radiographic dye allergy status; Z79.899 Other long term (current) drug therapy; Z79.01 Long term (current) use of anticoagulants; Z79.51 Long term (current) use of inhaled steroids; Z99.81 Dependence on supplemental oxygen; Z79.02 Long term (current) use of antithrombotics/antiplatelets; Z79.52 Long term (current) use of systemic steroids
CPT/HCPCS: 0241U; 36415; 71045; 80048; 80053; 82947; 83605; 83880; 84145; 84439; 84443; 84481; 84484; 85025; 85027; 93005; 93010; 94640; 94664; 94760; A9270; J0456; J0696; J1940; J2930; J7050

== ENCOUNTER → 2024-02-20 | Outpatient (CLI) | payer OTHER ==
[~2024-02-20] MED LIST changes: +AMOCLA875 PO
[2024-02-20 13:59] LABS: BASOPHILS ABSOLUTE AUTO 0.03 K/mm3 (0.00-0.23); BASOPHILS PERCENT AUTO 0 % (0-2); EOSINOPHILS PERCENT AUTO 1 % (0-6); Hematocrit 46.6 % (37.0-53.0); Hemoglobin 15.6 g/dL (13.5-17.5); IMMATURE GRAN ABSOLUTE AUTO 0.03 K/mm3 (0.00-0.10); IMMATURE GRAN PERCENT AUTO 0 % (0-1); LYMPHOCYTES ABSOLUTE AUTO 2.23 K/mm3 (0.84-5.20); LYMPHOCYTES PERCENT AUTO 19 % (21-46); MONOCYTES ABSOLUTE AUTO 0.79 K/mm3 (0.16-1.47); MONOCYTES PERCENT AUTO 7 % (4-13); Mean Corpuscular HGB 29.1 pg (26.0-34.0); Mean Corpuscular HGB Conc 33.5 g/dL (31.5-36.5); Mean Corpuscular Volume 87 fL (80-100); Mean Platelet Volume 12.4 fL (9.1-12.4); NEUTROPHILS ABSOLUTE AUTO 8.64 K/mm3 (1.96-9.15); NEUTROPHILS PERCENT AUTO 73 % (41-73); Platelet Count 229 K/mm3 (150-400); RDW Coefficient Variation 15.8 % (11.7-14.2); RDW Standard Deviation 49.7 fL (35.1-46.3); Red Blood Cell Count 5.36 M/mm3 (4.30-5.90); White Blood Cell Count 11.82 K/mm3 (4.00-11.30)
[2024-02-20 15:33] LABS: Albumin, Blood 3.3 g/dL (3.4-5.0); Albumin/Globulin Ratio 0.8 (0.8-1.8); Bilirubin, Total 0.8 mg/dL (0.1-1.0); Bun/Creatinine Ratio 12.1 (12.0-20.0); Calcium, Blood 8.8 mg/dL (8.5-10.1); Creatinine, Blood 1.07 mg/dL (0.60-1.20); Globulin, Blood 4.2 g/dL (2.2-4.0); Magnesium, Blood 1.4 mg/dL (1.6-2.4); Potassium, Blood 3.2 mmol/L (3.5-5.5); Thyroid Stimulating Hormone 0.767 uIU/mL (0.360-4.800); Total Protein, Blood 7.5 g/dL (6.4-8.2)
== END ==
LOC: LAB 12:17 → LAB SHORT 12:17
PROVIDERS: Family Medicine
DX: I48.91 Unspecified atrial fibrillation (principal); I50.810 Right heart failure, unspecified; J44.9 Chronic obstructive pulmonary disease, unspecified
CPT/HCPCS: 80053; 83735; 84443; 85025

== ENCOUNTER 2025-01-16 20:20 | Inpatient (IN) | payer OTHER ==
[~2025-01-16] VITALS: Ht 193 cm; Wt 154.8 kg
[2025-01-16 21:09] LABS: BASOPHILS ABSOLUTE AUTO 0.02 K/mm3 (0.00-0.23); BASOPHILS PERCENT AUTO 0 % (0-2); EOSINOPHILS ABSOLUTE AUTO 0.08 K/mm3 (0.00-0.68); EOSINOPHILS PERCENT AUTO 1 % (0-6); Hematocrit 45.9 % (37.0-53.0); Hemoglobin 14.7 g/dL (13.5-17.5); IMMATURE GRAN ABSOLUTE AUTO 0.03 K/mm3 (0.00-0.10); IMMATURE GRAN PERCENT AUTO 0 % (0-1); LYMPHOCYTES ABSOLUTE AUTO 1.90 K/mm3 (0.84-5.20); LYMPHOCYTES PERCENT AUTO 22 % (21-46); MONOCYTES ABSOLUTE AUTO 0.90 K/mm3 (0.16-1.47); MONOCYTES PERCENT AUTO 10 % (4-13); Mean Corpuscular HGB Conc 32.0 g/dL (31.5-36.5); Mean Corpuscular Volume 89 fL (80-100); NEUTROPHILS ABSOLUTE AUTO 5.81 K/mm3 (1.96-9.15); NEUTROPHILS PERCENT AUTO 67 % (41-73); NRBC ABSOLUTE 0.00 K/mm3 (0.00-0.02); NRBC Auto 0.0 /100 WBC (0.0-0.2); Platelet Count 310 K/mm3 (150-400); RDW Coefficient Variation 16.0 % (11.7-14.2); RDW Standard Deviation 52.3 fL (35.1-46.3)
[2025-01-16 21:28] LABS: Alanine Aminotransfer (ALT/SGP 67.0 U/L (12-78); Albumin, Blood 2.8 g/dL (3.4-5.0); Albumin/Globulin Ratio 0.7 (0.8-1.8); Anion Gap 6.0 mmol/L (3-11); Aspartate Aminotrans (AST/SGOT 18.0 U/L (12-37); Bilirubin, Total 1.2 mg/dL (0.1-1.0); Blood Urea Nitrogen 11.0 mg/dL (8-24); CO2, Blood 34.0 mmol/L (21-32); Calcium, Blood 9.2 mg/dL (8.5-10.1); Chloride, Blood 104.0 mmol/L (98-108); Creatinine, Blood 1.11 mg/dL (0.60-1.20); Globulin, Blood 3.9 g/dL (2.2-4.0); Glucose, Blood 103.0 mg/dL (70-99); Potassium, Blood 3.5 mmol/L (3.5-5.5); Sodium, Blood 140.0 mmol/L (136-145); Total Protein, Blood 6.7 g/dL (6.4-8.2)
[2025-01-16] MEDS ORDERED: Dose Adjust by Pharmacy XX STA (22:49)
[2025-01-16] MEDS ORDERED: Heparin Sodium,Porcine/0.5 NS 500 ML IV SCH (22:50)
[2025-01-16] MEDS ORDERED: Heparin Sodium 5000 Units/ML 1ML MDV IV ONE (22:50)
[2025-01-16 23:15] LABS: Anti-Xa UFH, PHA Monitoring <0.10 IU/mL; Prothrombin Time Results 12.0 Sec (9.7-11.5)
[2025-01-16] MEDS ORDERED: FLU VACC TS2025(65UP)/MF59C/PF 45 MCG/0.5 ML SYRINGE IM SCH (23:15)
[2025-01-16] MEDS ORDERED: Morphine Sulfate 4 MG/1 ML Injection IV PRN (23:20)
[2025-01-16] MEDS ORDERED: Ondansetron HCl 2 MG / ML 2ML Vial IV PRN (23:20)
[2025-01-16] MEDS ORDERED: Naloxone HCl 0.4MG / ML 1ML Vial IV PRN (23:20)
[2025-01-17] VITALS (7 sets, daily range): BP systolic 105–125; BP diastolic 64–93
[2025-01-17 02:11] LABS: BASOPHILS ABSOLUTE AUTO 0.03 K/mm3 (0.00-0.23); BASOPHILS PERCENT AUTO 0 % (0-2); EOSINOPHILS ABSOLUTE AUTO 0.13 K/mm3 (0.00-0.68); EOSINOPHILS PERCENT AUTO 2 % (0-6); Hematocrit 46.2 % (37.0-53.0); Hemoglobin 14.8 g/dL (13.5-17.5); IMMATURE GRAN ABSOLUTE AUTO 0.01 K/mm3 (0.00-0.10); IMMATURE GRAN PERCENT AUTO 0 % (0-1); LYMPHOCYTES ABSOLUTE AUTO 2.85 K/mm3 (0.84-5.20); LYMPHOCYTES PERCENT AUTO 34 % (21-46); MONOCYTES ABSOLUTE AUTO 0.88 K/mm3 (0.16-1.47); MONOCYTES PERCENT AUTO 11 % (4-13); Mean Corpuscular HGB Conc 32.0 g/dL (31.5-36.5); Mean Corpuscular Volume 89 fL (80-100); NEUTROPHILS ABSOLUTE AUTO 4.40 K/mm3 (1.96-9.15); NEUTROPHILS PERCENT AUTO 53 % (41-73); NRBC ABSOLUTE 0.00 K/mm3 (0.00-0.02); NRBC Auto 0.0 /100 WBC (0.0-0.2); Platelet Count 305 K/mm3 (150-400); RDW Coefficient Variation 16.2 % (11.7-14.2); RDW Standard Deviation 52.9 fL (35.1-46.3)
[2025-01-17 02:19] LABS: Alanine Aminotransfer (ALT/SGP 65 U/L (12-78); Albumin, Blood 3.0 g/dL (3.4-5.0); Albumin/Globulin Ratio 0.8 (0.8-1.8); Anion Gap 6 mmol/L (3-11); Aspartate Aminotrans (AST/SGOT 24 U/L (12-37); Bilirubin, Total 1.2 mg/dL (0.1-1.0); Blood Urea Nitrogen 10 mg/dL (8-24); CHOL/HDL RATIO 3.3; CO2, Blood 34 mmol/L (21-32); Calcium, Blood 8.8 mg/dL (8.5-10.1); Chloride, Blood 103 mmol/L (98-108); Cholesterol 135 mg/dL (50-200); Creatinine, Blood 1.02 mg/dL (0.60-1.20); Globulin, Blood 3.7 g/dL (2.2-4.0); Glucose, Blood 93 mg/dL (70-99); HDL Cholesterol 41 mg/dL (>39); LDL/HDL RATIO 1.8; Low Density Lipoprotein Chol 75 mg/dL (0-110); Magnesium, Blood 1.7 mg/dL (1.6-2.4); Potassium, Blood 3.3 mmol/L (3.5-5.5); Sodium, Blood 140 mmol/L (136-145); Thyroid Stimulating Hormone 1.670 uIU/mL (0.360-4.800); Total Protein, Blood 6.7 g/dL (6.4-8.2); Triglycerides 94 mg/dL (30-160); Very Low Density Lipoprot Chol 18 mg/dL (6-32)
[2025-01-17] MEDS ORDERED: DIAZEPAM10 MG PO (04:28)
[2025-01-17] MEDS ORDERED: Ventolin5 MG/1 ML INH (04:28)
[2025-01-17] MEDS ORDERED: Norco 7.5-3251 EACH PO (04:28)
[2025-01-17] MEDS ORDERED: PROAIR DIGIHAL90 MCG INH (04:29)
[2025-01-17] MEDS ORDERED: Morphine Sulfat30 M1 PO (04:30)
[2025-01-17] MEDS ORDERED: MORP20L PO (04:32)
--- NOTE | 2025-01-17 05:07 | NUR ---
UPDATE UPON ARRIVAL TO UNIT PT BECAME ANGRY ABOUT NOT BEING ABLE TO TAKE HIS OWN HOME MORPHINE FROM BEING ON HOSPICE.THIS RN EDUCATED PATIENT REGARDING PLAN OF CARE AND EXPECTATIONS WHILE IN THE HOSPITAL. PT EDUCATED ON PLAN FOR ANGIO IN AM AND BEING NPO AT MIDNIGHT. PT BECAME ANGRIER AND STATED THAT NO ONE TOLD ME ANY OF THIS . DEMANDED HIS BAGS/MEDICATIONS, REMOVED HIS TELE/O2 AND STATED THAT HE WOULD BE LEAVING. THIS RN EXPLAINED ABOUT THE IMPLICATIONS REGARDING LEAVING AMA. PT REPORTED THAT HE UNDERSTOOD THAT HE COULD . THIS RN OFFERED TO CALL SON AFTER PATIENT STATED THAT HE DID NOT HAVE A RIDE AND WOULD START WALKING . PT ACCEPTED OFFER WHILE YOGESH RN REMOVED IV S PATIENT WANTED TO GET DRESSED. THIS RN SPOKE TO SON ORION REGARDING PATIENT WANTING TO LEAVE AMA AND BEING AGAINST THE CURRENT PLAN OF CARE. SON BECAME UPSET ON THE PHONE AND STATED THAT HIS WOULD BE ON US IF HE COMMITTED SUICIDE BECAUSE WE LET HIM LEAVE . THIS RN STATED THAT PATIENT IS NOT SUICIDAL BUT DECLINES TO STAY D/T NOT BEING ABLE TO DRINK WATER AND TAKE HIS MORPHINE. SON DECLINED TO COME PICK HIM UP BUT WANTED TO SPEAK TO THE PATIENT. TRANSFERRED SON ON PHONE TO PATIENT AND THEY DISCUSSED THE PATIENT STAYING. MD MENDOZAOOL TO BEDSIDE WITH THIS RN AND YOGESH CENTENO TO DISCUSS PLAN OF CARE AND WISHES. REINFORCED EDUCATION REGARDING HOW MEDICATION ADMINISTRATION WORKS WHILE IN THE HOSPITAL. CODE STATUS VERIFIED WITH DOCTOR AND PT WANTS TO BE A FULL CODE. PT TALKED ABOUT BEING ON HOSPICE AND ATTEMPTING TO DO THE WITH [facility] WHILE HE WAS ON HOSPICE. EDUCATED PATIENT ABOUT ANGIOGRAM AND CURRENT PLAN OF CARE AGAIN. PT STATED THAT HE DOESN T WANT INTERVENTIONS BUT IS WILLING TO DO IT FOR THE SAKE OF HIS KIDS BECAUSE THEY WANT HIM TO LIVE. HE REITERATED THAT HE REALLY DIDNT WANT THE ANGIO BUT SAID HE WOULD DO IT. AGREED TO PLAN OF CARE AT THIS TIME. PT HAS BEEN NPO. AGREED TO ONLY TAKE OUR IV MORPHINE. THIS RN SPOKE TO PT S SON AGAIN ON THE PHONE REGARDING PLAN OF CARE AND PATIENT DESIRE TO STAY FOR TREATMENT. THE PATIENT S SON HAD MULTIPLE CONCERNS REGARDING PATIENT S PREVIOUS ADMISSION TO HOSPICE. THIS RN EDUCATED TO CURRENT PLAN OF CARE AND EDUCATED ON PATIENTS COPD WELL. SON NOTED TO HAVE SLURRED SPEECH ON PHONE AND CONTINUED TO REPEAT HIMSELF. IT IS UNCLEAR TO THE LEVEL OF ABILITY TO COMPREHEND EDUCATION AT THIS TIME. SON DECLINED FURTHER QUESTIONS AND STATED HE WOULD CALL IF HE HAD ANY OTHER QUESTIONS.
[2025-01-17] MEDS ORDERED: Magnesium Sulf 2 GM/Water 50ML 50 ML IV ONE (05:10)
[2025-01-17] MEDS ORDERED: Eucerin Unscented Lotion 240 ml TOP PRN (05:30)
[2025-01-17] MEDS ORDERED: Insulin Regular 100 UNIT/ML 10ML Vial SC SCH (06:00)
--- NOTE | 2025-01-17 06:08 | NUR ---
TRANSFER/SHIFT SUMMARY PT TRANSFERRED TO UNIT FROM ER AT 0025. PT BECAME AGITATED WHEN HE WAS TRANSFERRING FROM THE GURNEY TO THE BED. PT WAS UNSTEADY ON HIS FEET AND STAFF WERE ATTEMPTING TO GET THE PT TO SIT IN THE BED. PT WAS INSISTING ON GETTING ACCESS TO HIS BAG OF BELONGINGS. PT REMOVED HIS TELEMETRY LEADS AND STICKERS AND NC. PT STATED THAT THE HOSPITAL NEEDED TO ARRANGE TRANSPORTATION FOR HIM TO GET BACK HOME. JACOBO REAL WITH THIS RN INFORMED PT THAT IF HE LEFT AMA, THE HOSPITAL WOULD NOT BE ABLE TO MAKE THOSE ARRANGEMENTS FOR HIM. PT BEGAN PULLING AT HIS IV STATING THAT HE DIDN T NEED IT IF HE WAS GOING TO LEAVE. THIS RN REMOVED THE PTS IV S SO THE PT COULD BEGIN GETTING DRESSED. PT ALSO AGITATED BECAUSE HE WAS INFORMED THAT HE IS NPO. JACOBO REAL WITH THIS RN AND MD REYES SPOKE WITH PT AT LENGTH ABOUT POTENTIAL CONSEQUENCES OF LEAVING AMA WELL WHAT HIS TREATMENT PLAN WOULD BE IF HE WERE TO STAY. ULTIMATELY PT WAS AGREEABLE TO STAY AND BE COOPERATIVE WITH THERAPEUTIC O2, TELEMETRY, AND CONTINUOUS O2 MONITORING. THIS RN INSERTED TWO NEW IVS SO THAT PT COULD CONTINUE HEPARIN GTT AND RECEIVE FLUIDS. PT TOLERATED WELL. PT REMOVED SPO2 SENSOR SEVERAL TIMES BECAUSE IT BOTHERS HIM. EDUCATED PT ON PURPOSE AND IMPORTANCE OF KEEPING IT ON AT ALL TIMES. PT AGREEABLE TO DO SO. PT C/O CHEST PAIN AT ARRIVAL. PT GIVEN MEDICATION PER EMAR. PT REPORTS NO RELIEF. MD REYES NOTIFIED. PTS POTASSIUM 3.3. MD REYES NOTIFIED OF THIS ALSO. PT RESTING IN BED. FREQUENTLY REPOSITIONS SELF IN BED. PT SEEMS ANXIOUS ABOUT POSSIBLE CARDIAC CATH THIS AM. PT HAS BEEN NPO. HEPARIN GTT RUNNING AT 15UNITS/KG/HR. LR RUNNING AT 75ML/HR. VSS. SPO2 92-94% ON 4L. PT RESTING IN BED. X1 ASSIST WITH FWW D/T LINES AND MILD UNSTEADY GAIT.
--- NOTE | 2025-01-17 07:34 | NUR ---
ASSUMPTION NOTE: THIS RN TO ASSUME CARE OF PATIENT. PATIENT IS AWAKE AND CHATTING WITH THE RESIDENTS AT BEDSIDE. PATIENT ADJUSTING AT THE EDGE OF THE BED TO SHOW MD'S THE BRUSIING.
[2025-01-17] MEDS ORDERED: Miconazole Nitrate 2% 85 GM PWD TOP SCH (09:00)
[2025-01-17] MEDS ORDERED: Morphine Sulfate 4 MG/1 ML Injection IV PRN (09:00)
[2025-01-17] MEDS ORDERED: Petrolatum/Mineral Oil/Lanolin 1 APPLIC/50 GM Tube TOP SCH (09:00)
[2025-01-17] MEDS ORDERED: Triamcinolone 0.1% Lotion 60 GM TOP SCH (09:00)
--- NOTE | 2025-01-17 09:54 | NUR ---
Spiritual Care Visit* Pt. is awake and welcomes my visit. Pt. is pleasant, Facilitated a life review and listened with empathy and interest. Pt. verbalized that at home he was "on hospice." *This note is included because he doesn't present on our system as a Palliative Care Pt. Pt. welcomed prayer, prayed with the Pt. Pt. verbalized gratitude for the spiritual care visit.
[2025-01-17] MEDS ORDERED: Isosorbide Mononitrate 30 MG TABCR PO SCH (10:00)
--- NOTE | 2025-01-17 11:50 | NUR ---
MD CONTACTED: THIS RN CALLED MD REGARDING PATIENT HAVING ISULIN & BLOOD SUGAR CHECKS BUT PATIENT STATES HE IS NOT A DIABETIC. MD GAVE VERBAL ORDER TO DC INSULIN & BLOOD SUGAR CHECKS.
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
--- NOTE | 2025-01-17 17:07 | NUR ---
SHIFT SUMMARY: PATIENT IS ALERT AND ORIENTED X4 & COOPERATIVE WITH HIS CARE AT TIMES,OCCASIONALLY WILL REFUSE TO PLACE 02 NASAL CANNULA BACK ON AND RIPPED TELE OFF FOR A LITTLE BIT WHILE DAUGHTER WAS AT BEDSIDE. PATIENT HAS BEEN WEARING OXYGEN AT 2 LITERS VIA NASAL CANNULA ON AND OFF THROUGHOUT THE DAY. DAUGHTER CAME BY AND HER AND PATIENT WERE YELLING AND DAUGHTER WAS ASKED TO LEAVE THE PATIENT BECAME AGITATED AND RIPPING LEADS OFF AND STATING I M LEAVING NOW & I DON T WANT TO HEAR ANYTHING YOU HAVE TO SAY . PLAN WILL BE TO DISCHARGE TOMORROW AROUND NOON AFTER [facility] DELIVERS A HOSPITAL BED TO THE PATIENTS HOME. PATIENT AGREEABLE TO STAYING ANOTHER NIGHT & SPOKE WITH HIS SON. PATIENT IS A 1 PERSON ASSIST WITH FRONT WHEELED WALKER & NEEDS REMINDERS WHEN USING IT TO STAND TALL AND TO PUSH IT FORWARD. LR CONTINUES TO RUN AT 75ML/HR. PATIENT SAT IN THE CHAIR FOR MEALS THROUGHOUT THE DAY AND WAS ABLE TO GET SOME REST WELL. PATIENT CURRENTLY SITTING ON THE EDGE OF THE BED EATING DINNER,CALL LIGHT WITHIN REACH, BED IN LOWEST LOCKED POSITION STATING NOTHIGNE ELSE IS NEEDED AT THIS TIME.
--- NOTE | 2025-01-17 20:24 | NUR ---
ASSUMPTION OF CARE ASSUMED CARE OF PT AT APPROXIMATELYB 1900. PT VERY LETHARGIC AT START OF SHIFT. ABLE TO ANSWER QUESTIONS, BUT VERY SOFT SPOKEN AND DOZING OFF MID CONVERSATION. PT ROUSABLE TO VOICE. PT AGREEABLE TO TAKE EVENING MEDICATION AND ALLOWED VITALS TO BE TAKEN THOUGH REFUSING CONTINUOUS OXYGEN MONITORING. SPO2 96% ON 1.5L NC. NO C/O CP OR PRESSURE AT THIS TIME. C/O BACK PAIN BUT DECLINING PAIN MEDICATION. PTS LEVEL OF SEDATION AT THIS TIME ALSO CONTRAINDICATION FOR PAIN MEDS. WILL CONTINUE TO MONITOR THROUGHOUT THE SHIFT
[2025-01-18 03:24] VITALS: BP 113/72
--- NOTE | 2025-01-18 06:06 | NUR ---
SHIFT SUMMARY PT C/O SEVERE HEADACHE AFTER AMBULATING TO RESTROOM. PT GIVEN MEDS PER EMAR. PT BECAME RESTLESS, PULLING AT IV S, TELE, AND WRISTBAND. PT REFUSED TO HAVE WRISTBAND REPLACED. ONE IV DC D/T REDNESS AT INSERTION SITE. PT PULLED SECOND IV SOON AFTER FIRST WAS REMOVED. PT REFUSING CONTINUOUS O2 MONITOR. PT HAD INCONTINENT EPISODE IN BATHROOM. PT ALSO HAVING INTERMITTENT OBTUNDED EPISODES. PT WOULD BE DIFFICULT TO ROUSE AND ORIENTED ONLY TO HIS NAME. AFTER APPROXIMATELY 20 MINUTES, PT WOULD BE FULLY AOX4. PT MAY BENEFIT FROM SWITCHING IV MORPHINE TO PO IF HE IS UNABLE TO DC 01/18. PT DOES HAVE ONE INTACT IV IN RIGHT SHOULDER AREA. PT DOES NOT ALWAYS CALL FOR ASSISTANCE. BED ALARM ON. NO C/O CP/PRESSURE. NO C/O SOB. PT EAGER TO DC ON HOSPICE 01/18
[2025-01-18 08:30] VITALS: BP 118/83
[2025-01-18] MEDS ORDERED: ASPI81CH PO (10:54)
[2025-01-18] MEDS ORDERED: ATOR40TA PO (10:55)
[2025-01-18] MEDS ORDERED: Isosorbide Mono30 MG PO (10:55)
[2025-01-18] MEDS ORDERED: NITR.4SL SL (10:56)
[2025-01-18] MEDS ORDERED: NARCAN4 M1 (10:56)
[2025-01-18 11:28] VITALS: BP 113/72
--- NOTE | 2025-01-18 12:00 | NUR ---
SHIFT SUMMARY: NO SIGNIFICANT EVENTS HAPPENED DURING THIS SHIFT. SEE DISCHARGE NOTE.
--- NOTE | 2025-01-18 12:08 | NUR ---
DISCHARGE: PT DISCHARGED HOME ON HOSPICE AT 1205. [facility] AT BEDSIDE TO [facility] TRANSP[facility]. VSS PRIOR TO TRANSFER. PT DENIES ANY QUESTIONS OR NEED FOR FURTHER INSTRUCTIONS. ALL BELONGINGS SENT W/ PT ON DISCHARGE.
== END 2025-01-18 12:04 | disposition hospice, home (50) | DRG 311 ==
LOC: ER 20:20 → PCU 22:39
PROVIDERS: Emergency Medicine; ADMIT Student in an Organized Health Care Education/Training Program
DX: I20.0 Unstable angina (principal); Z68.41 Body mass index [BMI] 40.0-44.9, adult; J96.11 Chronic respiratory failure with hypoxia; E66.01 Morbid (severe) obesity due to excess calories; J44.9 Chronic obstructive pulmonary disease, unspecified; I48.0 Paroxysmal atrial fibrillation; E11.9 Type 2 diabetes mellitus without complications; R22.2 Localized swelling, mass and lump, trunk; Z51.5 Encounter for palliative care; K21.9 Gastro-esophageal reflux disease without esophagitis; I10 Essential (primary) hypertension; I87.2 Venous insufficiency (chronic) (peripheral); G89.4 Chronic pain syndrome; E78.5 Hyperlipidemia, unspecified; Z86.73 Personal history of transient ischemic attack (TIA), and cerebral infarction without residual deficits; Z99.81 Dependence on supplemental oxygen; Z91.041 Radiographic dye allergy status; Z88.5 Allergy status to narcotic agent; Z79.51 Long term (current) use of inhaled steroids; Z79.52 Long term (current) use of systemic steroids; Z90.49 Acquired absence of other specified parts of digestive tract; Z87.891 Personal history of nicotine dependence; Z79.891 Long term (current) use of opiate analgesic
CPT/HCPCS: 36415; 71046; 80053; 80061; 82947; 83036; 83735; 84443; 84484; 85025; 85520; 85610; 85730; 94762; 99285-25; A9270; C8929; J1644; J2270; J3475; J3480; J7050; J7120; Q9957